=== PATIENT | male | born 1965 | race Caucasian/White ===

== ENCOUNTER 2019-12-26 06:42 | Emergency (ER) | payer OTHER, SELFPAY ==
--- NOTE | ~2019-12-26 | XR_ITS ---
EXAMINATION: XR ribs LT 2V w CXR 2V DATE: 12/26/2019 07:22 INDICATION: Sudden cough and lower chest wall pain TECHNIQUE: PA and lateral views of the chest and 3 views of the left ribs were obtained. COMPARISON: None FINDINGS: No rib fractures identified. Lungs are clear with no focal airspace opacities, pulmonary edema, pleur al effusion or pneumothorax. Cardiomediastinal silhouette is normal. Mild thoracic spondylosis with c hronic mild anterior wedging of a few lower thoracic vertebral bodies. Mild lumbar dextrocurvature. IMPRESSION: 1. No rib fracture or acute cardiopulmonary disease. Reviewed, dictated and finalized at location A.
[2019-12-26 06:46] VITALS: BP 154/110; PULSE 87; RESP 18; TEMP 36.3; O2SAT 99
--- NOTE | 2019-12-26 07:13 | ED.GENADULT ---
HPI - General Adult General Chief complaint: Unspecified Stated complaint: left rib pain Time Seen by Provider: 12/26/19 06:43 History of Present Illness HPI narrative: Patient is a 54-year-old male who presents ER with left-sided chest pain. To the mid axillary line and down low near the abdomen. 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 He woke up this morning and sneezed and suddenly felt a pop and had severe onset and pain. No deformity no difficulty breathing. Pain is worse with certain movements and taking a deep breath. No other known trauma. No known alleviating factors at this time. Related Data Home Medications Medication Instructions Recorded Confirmed Aspirin Low Dose 12/26/19 gabapentin 12/26/19 lisinopril-hydrochlorothiazide tablet 12/26/19 metoprolol succinate PO 12/26/19 naproxen 12/26/19 tizanidine mg 12/26/19 tramadol mg 12/26/19 Allergies Allergy/AdvReac Type Severity Reaction Status Date / Time [place] Allergy Unknown Swelling Uncoded 12/26/19 07:20 of Lip/Tongue/Throat Review of Systems Review of Systems: All systems reviewed & are unremarkable except as noted in HPI and below Constitutional: Constitutional: Denies chills and Denies fever(s) ENT: Denies nasal congestion and Denies sore throat Cardiovascular: Comments: left chest wall pain Respiratory: Respiratory: Denies cough, Denies dyspnea and Denies wheezing PMFSH Past Medical History Medical History (Updated 12/26/19 @ 08:09 by Bari Elizabeth MD) Bipolar disorder Diverticulitis GERD (gastroesophageal reflux disease) Surgical History Surgical History (Updated 12/26/19 @ 07:16 by Bari Elizabeth MD) History of skin graft Social History Social History (Updated 12/26/19 @ 07:16 by Bari Elizabeth MD) Smoking status: Never smoker Alcohol use details: occassional Exam Narrative: Exam Narrative: GENERAL: Uncomfortable-appearing, well-nourished, and in no acute distress. HEAD: Normocephalic, atraumatic. ENT: Mucous membranes moist. CHEST: Clear to auscultation. No respiratory distress. TTP left lateral chest wall mid-axillary line w/o deformity/swelling/brusing. In region on rib 10. HEART: Regular rate and rhythm. Normal peripheral pulses. EXTREMITIES: Normal range of motion. No edema. SKIN: Warm, dry, no rash. NEURO: Alert and oriented x3. Course Course Emergency Course: Patient reports pain improved but not resolved after morphine. Able to take a break of breath. Informed that x-rays are negative for fracture. Can still have a small fracture but more likely patient has a torn muscle. Tx with nsaids/norco, no heavy lifting. Vital Signs Vital signs: Vital Signs Temperature 97.3 F L 12/26/19 06:46 Pulse Rate 87 12/26/19 06:46 Respiratory Rate 18 12/26/19 06:46 Blood Pressure 154/110 H 12/26/19 06:46 Pulse Oximetry 99 12/26/19 06:46 Temperature 97.3 F L 12/26/19 06:46 Pulse Rate 87 12/26/19 06:46 Respiratory Rate 18 12/26/19 06:46 Blood Pressure 154/110 H 12/26/19 06:46 Pulse Oximetry 99 12/26/19 06:46 Medical Decision Making Vital Signs Vital Signs: Vital Signs Temperature 97.3 F L 12/26/19 06:46 Pulse Rate 87 12/26/19 06:46 Respiratory Rate 18 12/26/19 06:46 Blood Pressure 154/110 H 12/26/19 06:46 Pulse Oximetry 99 12/26/19 06:46 Temperature 97.3 F L 12/26/19 06:46 Pulse Rate 87 12/26/19 06:46 Respiratory Rate 18 12/26/19 06:46 Blood Pressure 154/110 H 12/26/19 06:46 Pulse Oximetry 99 12/26/19 06:46 Imaging Data Radiologist's impression: ITS Impressions Ribs w/Chest X-Ray 12/26/19 07:29 IMPRESSION: 1. No rib fracture or acute cardiopulmonary disease. Discharge Plan Discharge Clinical Impression: Acute chest wall pain Patient Disposition: Home, Self-Care Condition: Stable Instructions: C
[2019-12-26] MEDS: MORPHINE SULFATE 4 MG/ML INJ IM (07:24)
--- NOTE | 2019-12-26 07:29 | PC.NURSE ---
Pt given pain meds as ordered. Pt given pillow and taught to splint for pain control with cough.
[2019-12-26 08:07] VITALS: BP 152/106; PULSE 77; RESP 18; O2SAT 96
[2019-12-26 08:32] VITALS: BP 138/95; PULSE 78; RESP 18
== END 2019-12-26 08:34 | disposition home or self-care (01) ==
PROVIDERS: Emergency Provider Emergency Medicine; PCP Family Medicine
DX: R07.89 Other chest pain (principal); F31.9 Bipolar disorder, unspecified; K21.9 Gastro-esophageal reflux disease without esophagitis; Z79.82 Long term (current) use of aspirin
CPT/HCPCS: 71046; 71100; 96372; 99283; J2270

== ENCOUNTER 2020-05-08 10:26 | Emergency (ER) | payer OTHER, SELFPAY ==
--- NOTE | ~2020-05-08 | XR_ITS ---
EXAMINATION: XR chest 2V DATE: 05/08/2020 10:50 INDICATION: Left anterior and lateral rib pain. TECHNIQUE: Frontal and lateral views of the chest were obtained. COMPARISON: Chest and left rib radiographs 12/26/2019, CT abdomen and pelvis 12/20/2016 FINDINGS: There is mild atelectasis at left lung base. No pleural effusion or pneumothorax. The heart size is normal. There are fractures of left sixth, seventh, and eighth ribs. There is mild chronic a nterior wedging of T11 and T12 vertebral bodies. IMPRESSION: 1. Acute fractures of left sixth-eighth ribs. 2. Mild atelectasis at left lung base. Reviewed, dictated and finalized at location A.
[2020-05-08 10:37] VITALS: BP 139/95; PULSE 92; RESP 20; TEMP 36.1; O2SAT 97
[2020-05-08 10:50] VITALS: RESP 20
--- NOTE | 2020-05-08 10:55 | ED.GENADULT ---
HPI - General Adult General Chief complaint: Unspecified Stated complaint: pos muscle strain Time Seen by Provider: 05/08/20 10:48 Source: patient and RN notes reviewed Mode of arrival: ambulatory Limitations: no limitations History of Present Illness HPI narrative: 55-year-old male presents with concern for left rib pain. Reports intermittent pain since the end of December, he was seen in the emergency room at that time and diagnosed with a muscle spasm after negative chest x-ray. Reports symptoms improved, but never fully went away. Reports pain worsened 2 days ago, reports this morning he was pulling up his underwear and felt a pop in his left rib area. He has been taking tramadol, tizanidine and Tylenol with no pain relief. He denies difficulty breathing, shortness of breath. Reports pain worsens with sneezing, coughing, deep breathing, position changes. MD complaint: Rib pain Related Data Home Medications Medication Instructions Recorded Confirmed gabapentin 400 mg PO BID PRN 12/26/19 05/08/20 metoprolol succinate 50 mg PO DAILY 12/26/19 05/08/20 tizanidine 4 mg PO DAILY 12/26/19 05/08/20 tramadol 50 mg PO QID PRN 12/26/19 05/08/20 lisinopril-hydrochlorothiazide 1 tablet PO DAILY 05/08/20 05/08/20 Allergies Allergy/AdvReac Type Severity Reaction Status Date / Time [place] Allergy Unknown Swelling Uncoded 05/08/20 10:40 of Lip/Tongue/Throat Review of Systems Review of Systems: Narrative: CONSTITUTIONAL: Denies malaise, chills, sweats, or fever. CARDIOVASCULAR: Denies chest pain, palpitations, or edema. RESPIRATORY: Denies cough or dyspnea. GASTROINTESTINAL: Denies abdominal pain, nausea, vomiting, diarrhea SKIN: Denies bruising, redness, swelling MUSCULOSKELETAL: Reports left rib pain All systems reviewed & are unremarkable except as noted in HPI and below PMFSH Past Medical History Medical History (Updated 05/08/20 @ 11:12 by Kimberly Sarmiento NP) Bipolar disorder Diverticulitis GERD (gastroesophageal reflux disease) Surgical History Surgical History (Updated 12/26/19 @ 07:16 by Bari Elizabeth MD) History of skin graft Social History Social History (Updated 12/26/19 @ 07:16 by Bari Elizabeth MD) Smoking status: Never smoker Comments At time of signature, agree with nursing past medical, surgical, social and family history. There is no relevant family history pertinent to the presenting complaint Exam Narrative: Exam Narrative: GENERAL: Well-appearing, well-nourished, and in no acute distress. HEAD: Normocephalic EYES: PERRLA, conjunctivae clear ENT: Mucous membranes moist. NECK: Supple. CHEST: No respiratory distress. Clear to auscultation. No bony deformities, no asymmetry. Speaks in full sentences. Left anterior tenderness HEART: Regular rate and rhythm. SKIN: Warm, dry, no rash. No erythema ecchymosis NEURO: Alert and oriented x3. PSYCH: Normal mood and affect Course Course Emergency Course: Patient is aware of diagnosis, understands and agrees to treatment plan. Anticipatory guidance given. Patient agrees to follow-up as directed and is aware of reasons to seek care at the emergency department. Portions of this record may have been created with voice recognition software Vital Signs Vital signs: Vital Signs Temperature 97 F L 05/08/20 10:37 Pulse Rate 92 05/08/20 10:37 Respiratory Rate 05/08/20 10:37 Blood Pressure 139/95 H 05/08/20 10:37 Pulse Oximetry 97 05/08/20 10:37 Temperature 97 F L 05/08/20 10:37 Pulse Rate 92 05/08/20 10:37 Respiratory Rate 05/08/20 10:50 Blood Pressure 139/95 H 05/08/20 10:37 Pulse Oximetry 97 05/08/20 10:37 Reviewed. Patient has history of hypertension Medical Decision Making MDM Narrative Medical decision making narrative: Patients injury and pain is consistent with musculoskeletal etiology. No signs of neurological or vascular compromise on exam. Compartments and tissues are soft w
== END 2020-05-08 11:22 | disposition home or self-care (01) ==
PROVIDERS: Emergency Provider Nurse Practitioner
DX: S22.42XA Multiple fractures of ribs, left side, initial encounter for closed fracture (principal); X50.0XXA Overexertion from strenuous movement or load, initial encounter; K21.9 Gastro-esophageal reflux disease without esophagitis
CPT/HCPCS: 71046; 99213; G0463